=== PATIENT | female | born 1970 | race Caucasian/White ===

== ENCOUNTER 2019-04-22 08:11 | Outpatient (CLI) | payer OTHER ==
[2019-05-10 10:52] LABS: eGFR (Non-African) > 60
[2019-05-10 10:53] LABS: BASOPHILS % 1.4 % (0.0-1.5); NEUTROPHILS # 4.5 # k/uL (1.4-7.7)
== END 2019-04-22 18:16 | disposition home or self-care (01) ==
LOC: LAB 08:11
PROVIDERS: ATTEND Family Medicine
DX: R21 Rash and other nonspecific skin eruption (principal); R50.9 Fever, unspecified
CPT/HCPCS: 36415; 80053; 85025

== ENCOUNTER 2019-04-23 12:41 | Outpatient (CLI) | payer OTHER ==
[2019-05-11 13:59] LABS: eGFR (Non-African) > 60
[2019-05-11 14:00] LABS: BASOPHILS % 0.9 % (0.0-1.5); NEUTROPHILS # 4.3 # k/uL (1.4-7.7)
== END 2019-04-23 14:10 | disposition home or self-care (01) ==
LOC: INF 12:41
PROVIDERS: ATTEND Family Medicine
DX: R21 Rash and other nonspecific skin eruption (principal); R50.9 Fever, unspecified
CPT/HCPCS: 36415; 80053; 85025

== ENCOUNTER 2019-04-26 08:46 | Outpatient (CLI) | payer OTHER ==
[2019-05-11 14:01] LABS: BASOPHILS % 0.8 % (0.0-1.5); NEUTROPHILS # 9.4 # k/uL (1.4-7.7); eGFR (Non-African) > 60
== END 2019-04-26 08:51 | disposition home or self-care (01) ==
LOC: LAB 08:46
PROVIDERS: ATTEND Family Medicine
DX: R21 Rash and other nonspecific skin eruption (principal); R50.9 Fever, unspecified
CPT/HCPCS: 36415; 80053; 85025

== ENCOUNTER 2019-04-29 08:28 | Outpatient (CLI) | payer OTHER ==
[2019-05-11 17:44] LABS: BASOPHILS % 0.4 % (0.0-1.5); NEUTROPHILS # 7.5 # k/uL (1.4-7.7); eGFR (Non-African) > 60
== END 2019-04-29 08:33 | disposition home or self-care (01) ==
LOC: LAB 08:28
PROVIDERS: ATTEND Family Medicine
DX: R21 Rash and other nonspecific skin eruption (principal); R50.9 Fever, unspecified
CPT/HCPCS: 36415; 80053; 85025

== ENCOUNTER 2019-05-04 09:18 | Outpatient (CLI) | payer OTHER ==
[2019-05-12 08:08] LABS: eGFR (Non-African) > 60
[2019-05-12 08:09] LABS: BASOPHILS % 0.5 % (0.0-1.5); NEUTROPHILS # 7.3 # k/uL (1.4-7.7)
== END 2019-05-04 09:23 | disposition home or self-care (01) ==
LOC: LAB 09:18
PROVIDERS: ATTEND Family Medicine
DX: R21 Rash and other nonspecific skin eruption (principal); R50.9 Fever, unspecified
CPT/HCPCS: 36415; 80053; 85025

== ENCOUNTER 2019-05-11 16:14 | Outpatient (CLI) | payer OTHER ==
[2019-05-11 16:44] LABS: eGFR (Non-African) > 60
== END 2019-05-11 16:16 ==
LOC: LAB 16:14
PROVIDERS: ATTEND Family Medicine
DX: R21 Rash and other nonspecific skin eruption (principal); R50.9 Fever, unspecified
CPT/HCPCS: 36415; 80053; 85025

== ENCOUNTER 2019-05-18 14:33 | Outpatient (CLI) | payer OTHER ==
[2019-05-18 14:44] LABS: BASOPHILS % 0.7 % (0.0-1.5); NEUTROPHILS # 9.5 # k/uL (1.4-7.7)
[2019-05-18 14:56] LABS: eGFR (Non-African) > 60
== END 2019-05-18 14:35 ==
LOC: LAB 14:33
PROVIDERS: ATTEND Family Medicine
DX: L30.9 Dermatitis, unspecified (principal); R50.9 Fever, unspecified
CPT/HCPCS: 36415; 80053; 85025

== ENCOUNTER 2019-06-02 14:59 | Outpatient (CLI) | payer OTHER ==
[2019-06-02 15:09] LABS: BASOPHILS % 0.5 % (0.0-1.5); NEUTROPHILS # 7.1 # k/uL (1.4-7.7)
[2019-06-02 15:18] LABS: eGFR (Non-African) > 60
== END 2019-06-02 15:01 ==
LOC: LAB 14:59
PROVIDERS: ATTEND Family Medicine
DX: R21 Rash and other nonspecific skin eruption (principal); R50.9 Fever, unspecified
CPT/HCPCS: 36415; 80053; 85025

== ENCOUNTER 2019-06-09 10:12 | Outpatient (CLI) | payer OTHER ==
[2019-06-09 10:26] LABS: BASOPHILS % 0.5 % (0.0-1.5); NEUTROPHILS # 4.8 # k/uL (1.4-7.7)
[2019-06-09 10:50] LABS: eGFR (Non-African) > 60
== END 2019-06-09 10:14 ==
LOC: LAB 10:12
PROVIDERS: ATTEND Family Medicine
DX: R50.9 Fever, unspecified (principal); R21 Rash and other nonspecific skin eruption
CPT/HCPCS: 36415; 80053; 85025

== ENCOUNTER 2019-06-25 11:25 | Outpatient (CLI) | payer OTHER ==
[2019-06-25 11:38] LABS: BASOPHILS % 0.5 % (0.0-1.5); NEUTROPHILS # 4.9 # k/uL (1.4-7.7)
[2019-06-25 12:21] LABS: eGFR (Non-African) > 60
== END 2019-06-25 11:27 ==
LOC: LAB 11:25
PROVIDERS: ATTEND Family Medicine
DX: R21 Rash and other nonspecific skin eruption (principal); R50.9 Fever, unspecified
CPT/HCPCS: 36415; 80053; 85025

== ENCOUNTER 2019-07-12 16:39 | Outpatient (CLI) | payer OTHER ==
[2019-07-12 16:47] LABS: BASOPHILS % 0.7 % (0.0-1.5); NEUTROPHILS # 5.5 # k/uL (1.4-7.7)
[2019-07-12 17:00] LABS: eGFR (Non-African) > 60
== END 2019-07-12 16:41 ==
LOC: LAB 16:39
PROVIDERS: ATTEND Family Medicine
DX: R21 Rash and other nonspecific skin eruption (principal); R50.9 Fever, unspecified
CPT/HCPCS: 36415; 80053; 85025

== ENCOUNTER 2019-08-09 13:58 | Outpatient (CLI) | payer OTHER ==
[2019-08-09 14:44] LABS: BASOPHILS % 0.4 % (0.0-1.5)
[2019-08-09 14:58] LABS: eGFR (Non-African) > 60
== END 2019-08-09 14:00 ==
LOC: LAB 13:58
PROVIDERS: ATTEND Family Medicine
DX: R21 Rash and other nonspecific skin eruption (principal); R50.9 Fever, unspecified
CPT/HCPCS: 36415; 80053; 85025